=== PATIENT | female | born 1995 | race Caucasian/White ===

== ENCOUNTER 2019-12-26 08:00 | Outpatient (RCR) | payer OTHER, SELFPAY ==
[2019-12-26 09:30] VITALS: BMI 28.3
[2019-12-26 09:31] VITALS: BMI 28.3
== END 2020-03-08 08:06 | disposition home or self-care (01) ==
LOC: ANHDMC 08:00
PROVIDERS: PCP Emergency Medicine; Visit Provider Emergency Medicine
DX: O24.319 Unspecified pre-existing diabetes mellitus in pregnancy, unspecified trimester (principal); Z71.3 Dietary counseling and surveillance; Z71.89 Other specified counseling; Z3A.28 28 weeks gestation of pregnancy
CPT/HCPCS: 97802; G0108